=== PATIENT | female | born 1945 | race Asian ===

== ENCOUNTER → 2017-10-27 | Outpatient (CLI) | payer OTHER ==
[~2017-10-27] VITALS: Ht 152.4 cm; Wt 73.9 kg
[~2017-10-27] MED LIST: ACTOS 30 MG TAB30 M1 PO; ASPIR 8181 MG PO; CALCIUM 600 MG1 EAC2 PO; GLIPIZIDE ER2.5 MG PO; GLIPIZIDE XL10 MG PO; JANUMET 50-1,01 EACH PO; LOSARTAN POTAS100 MG PO
--- NOTE | ~2017-10-27 | P ---
[facility] [place] [address] PROCEDURE REPORT Name: PHILTamannaANILA P [id number] Admission: 10/27/17 Attend Phys: Chilango Gaviria Discharge: Date of : 49 Report #: [id number] THIS REPORT FOR: //name// CC: Chilango Mcneill MD DATE OF SERVICE: 10/27/2017 PROCEDURE PERFORMED: Colonoscopy with biopsies. HISTORY OF PRESENT ILLNESS: The patient is a 72-year-old female who presents today for routine screening colonoscopy. She denies any symptoms. No family history of colon cancer. DESCRIPTION OF PROCEDURE: The risks and benefits of the procedure were explained to the patient those risks including but not limited to bleeding, perforation and the risk of sedation. She understood these risks and gave informed consent. Sedation was given using propofol per anesthesia. Next, a digital rectal exam was initially performed, which was normal. Next, using a standard Olympus colonoscope, the scope was placed in the patient's anus and advanced under direct vision to the cecum. The overall prep was good. The cecum and ileocecal valve were normal in appearance. In the ascending colon, a 3 mm sessile polyp, this was removed with cold forceps, otherwise normal. In the transverse colon, a 5 mm sessile polyp also removed with cold forceps. The descending and sigmoid colon were normal. The rectal mucosa was normal. On retroflexion, no abnormalities were noted. The scope was then withdrawn and the procedure terminated. The patient tolerated the procedure well. IMPRESSION: 1. Two small colonic polyps. 2. Otherwise, normal colonoscopy. RECOMMENDATIONS: 1. Await biopsy results. 2. If polyps are hyperplastic, repeat colonoscopy in 10 years. If adenomatous polyp, repeat in 5 years. Thank you for allowing me to participate in her care. <ELECTRONICALLY SIGNED> By: Chilango Pantoja MD 10/27/17 [id number] Chilango Pantoja MD /nt
== END | disposition home or self-care (01) ==
LOC: GI 07:27
DX: Z12.11 Encounter for screening for malignant neoplasm of colon (principal); D12.3 Benign neoplasm of transverse colon; D12.2 Benign neoplasm of ascending colon; I10 Essential (primary) hypertension; G47.33 Obstructive sleep apnea (adult) (pediatric); Z90.710 Acquired absence of both cervix and uterus; E11.9 Type 2 diabetes mellitus without complications; Z85.3 Personal history of malignant neoplasm of breast
CPT/HCPCS: 62110; 62900